=== PATIENT | female | born 1960 | race Caucasian/White ===

== ENCOUNTER 2019-07-07 08:41 | Day surgery (SDC) | payer SELFPAY ==
[2019-07-02 13:10] VITALS: BMI 22.2
[2019-07-07] MEDS ORDERED: ONDANSETRON 4 MG/2 ML VIAL ONE (08:58)
[2019-07-07] MEDS ORDERED: ceFAZolin SODIUM 1 GM VIAL ONE (08:58)
[2019-07-07] MEDS ORDERED: PROPOFOL 20 ML ONE ×8 (08:59→14:03)
[2019-07-07] MEDS ORDERED: MIDAZOLAM HCL 2 MG/2 ML SINGLE DOSE VIAL ONE (09:00)
[2019-07-07] MEDS ORDERED: oxyCODONE HCL 5 MG TABLET PO PRN ×2 (10:44)
[2019-07-07] MEDS ORDERED: ONDANSETRON 4 MG/2 ML VIAL IVPUSH PRN (10:44)
[2019-07-07] MEDS ORDERED: LACTATED RINGERS SOLUTION 1,000 ML IV SCH (10:45)
[2019-07-07] MEDS ORDERED: TETRACAINE 0.5% OPHTH SOLN 2 ML BOTTLE ONE (11:19)
[2019-07-07] MEDS ORDERED: LIDOCAINE 1%/EPI 1:100000 (20 ML MULTI DOSE VIAL) ONE ×2 (11:19→12:19)
[2019-07-07] MEDS ORDERED: POVIDONE-IODINE 5% OPHTHALMIC PREP 30 ML SOLUTION ONE (11:19)
[2019-07-07] MEDS ORDERED: ERYTHROMYCIN 0.5% OPHTHALMIC OINTMENT 3.5 GM TUBE ONE (11:19)
[2019-07-07 15:32] VITALS: TEMP 97.5
--- NOTE | 2019-07-07 16:24 | OP ---
DATE OF OPERATION: 07/07/2019 PREOPERATIVE DIAGNOSIS: Dermatochalasis both upper lids, brow ptosis left, slight central deformity A frame upper lids, and dermatochalasis both lower lids with mild nasal fat prominence left lower lid. POSTOPERATIVE DIAGNOSIS: Dermatochalasis both upper lids, brow ptosis left, slight central deformity A frame upper lids, and dermatochalasis both lower lids with mild nasal fat prominence left lower lid. PROCEDURES: 1. Blepharoplasty both upper lids. 2. Browpexy left eyebrow. 3. Transconjunctival fat sculpting nasal left lower lid. 4. Blepharoplasty bilateral lower lids. SURGEON: Mehrdad Wright MD ANESTHESIA: Local with sedation. COMPLICATIONS: None. ESTIMATED BLOOD LOSS: 5 mL. OPERATIVE REPORT: Patient brought to the operating room and placed on the operating room table. Vital signs monitored by anthesthesia. Tetracaine was placed in both eyes. The lid creases were marked symmetrically in both upper eyelids to be in the nasal lid crease and symmetric and checked with a caliper. They were extended out to the extent of the temporal holloway, which had been noted preoperatively in the holding area. Once these ellipses were marked then the amount of skin to be resected symmetrically was marked in both upper lids leaving at least 10 mm below the brow. Preoperatively, the position of browpexy that was going to be used in the left brow was marked. After time-out was performed, 2% lidocaine, 1:100,000 epinephrine was injected throughout both upper lids, 2-3 mL in each lid, and then throughout the temporal brow on the left. Patient was prepped and draped in the usual sterile fashion exposing both eyes. The following procedures were performed biliary. The lid creases were incised with a 15 blade symmetrically. The superior edge of the ellipses were incised, and these were removed with [place] needle with the nasal end of each ellipse being removed with a Bossman scissor. Hemostasis was achieved with a [place] needle as needed. Attention was now carried out in the nasal through the orbicularis and septum exposing the nasal fat. A pedicle of nasal fat, the lacer and tier nasal fat pad was developed, and the pedicle was freed of all fibrous tissue and was brought to the central eyelid where it was sutured to the posterior aspect surface of the orbicularis with a mattressed 5-0 Vicryl suture to fill the A frame deformity. No sculpting on the central fat was performed as there was not much central fat that needed to be sculpted. Temporally, a section on the left was carried up to the orbital rim underneath the brown fat pad, and at the inferior edge of the brown 10 mm above the superior orbital rim, 5-0 Prolene was passed through the inferior brow hairs then through the periosteum and 10 cm above the orbital rim then back through the sub brow fat pad and tied creating a browpexy at this location with good elevation and symmetry of the brow. On both sides, 2 brassiere sutures of 5-0 Vicryl were placed in the temporal wound suturing orbicularis to arcus and then to orbicularis to accentuate the temporal lid crease and to elevate the brow fat pad temporally. The wounds were then closed with interrupted and running 6-0 nylon suture in plastic technique after antibiotic irrigation and hemostasis completing the upper blepharoplasty. Attention was now turned to the lower blepharoplasty. While the upper lids were being closed, 2 mL of 1% Xylocaine with epinephrine was injected in the nasal and central fat pad on the left, and the pupil was seen to dilate after this injection presumably from effect of the anesthetic on the pupillary constrictors in the inferior orbit. The lid was retracted with a [place], and transconjunctival incision was made through conjunctiva retractors exposing the nasal and central fat pockets. These were carefully dissected away from the inferior oblique, which was protected. All fibrous tissues around the fat pockets were released so that they moved freely. Then the arcus was incised inferonasally. Using a [place] periosteal elevator, the tear trough and nasojugal fold attachments were elevated off of the periosteum, and the mobilized nasal and central fat pads were tucked into this fat pocket using a mattressed, running 5-0 Prolene suture, which passed beyond the tear trough toward the arcus then through the nasal and central fat pocket in a to and fro motion and then back out through the wound where it was tied through a piece of Telfa securing the fat in the nasojugal fold. Minimal, if any, trimming of the fat was necessary in this instance. The antibiotic irrigation was used. The temporal fat wound sculpted. The conjunctivae was closed with buried 6-0 plain suture. Attention was now turned to the skin. A subciliary line had been marked earlier during the case, and the skin was then injected with 2% Xylocaine, 1:100,000 epinephrine, and time was allowed to elapse for hemostasis. Incision site were then made below the ciliary line using the 15 blade, and the skin flap was dissected down toward the orbital rim leaving muscle intact. Hemostasis was achieved by packing with cottonoids moistened with epinephrine and then minimal cautery. With the drapes released so that there would be no tension on the cheek, simulating tension by pushing on the cheek down once manually, the amount of skin that could be safely resected to relieve the redundancy and dermatochalasis in both lower lids was examined. The skin was unrolled. A vertical cut was made into the eyelid and then triangles were removed nasally and temporally resecting a few millimeters of skin in each eyelid to improve the dermatochalasis. The wounds in the lower lid were closed with running and interrupted 6-0 nylon suture with plastic technique and then each lower lid was secured with a double-arm 4-0 silk passed through a No. 8 red rubber catheter, which was passed through the skin and great line of the lower lid laterally and secured to the forehead with Mastisol and Steri-Strips. Erythromycin ointment was placed in the eye and on the sutures to the upper lid and lower lid, and the patient was taken to the recovery room in stable condition. MEHRDAD WRIGHT M.D. [id number]
[2019-07-07 16:30] VITALS: BP 142/94; PULSE 72
== END 2019-07-07 16:00 | disposition home or self-care (01) ==
LOC: FASU 08:41
PROVIDERS: ATTEND Ophthalmology
PROC: 08SN0ZZ Reposition Right Upper Eyelid, Open Approach (ICD-10-PCS; 2019-07-07)
PROC: 0W020ZZ Alteration of Face, Open Approach (ICD-10-PCS; 2019-07-07)
PROC: 08SP0ZZ Reposition Left Upper Eyelid, Open Approach (ICD-10-PCS; principal; 2019-07-07 12:19)
DX: H02.835 Dermatochalasis of left lower eyelid (principal); H02.834 Dermatochalasis of left upper eyelid; H02.831 Dermatochalasis of right upper eyelid; H02.832 Dermatochalasis of right lower eyelid; H57.812 Brow ptosis, left; H02.89 Other specified disorders of eyelid
CPT/HCPCS: 94760